=== PATIENT | male | born 1990 | race Caucasian/White ===

== ENCOUNTER 2021-03-09 12:11 | Emergency (ER) | payer SELFPAY ==
[~2021-03-09] VITALS: Ht 170.2 cm; Wt 68.0 kg
[~2021-03-09 12:11] MED LIST: SILSUL1TC TOP
== END 2021-03-09 15:00 | disposition left against medical advice (07) ==
LOC: ER 12:11
DX: Z53.21 Procedure and treatment not carried out due to patient leaving prior to being seen by health care provider (principal)